=== PATIENT | female | born 1950 ===

== ENCOUNTER → 2019-01-07 18:24 | Outpatient (REF) | payer MEDICARE, OTHER, SELFPAY ==
[2019-01-07 19:45] LABS: Alanine Aminotransferase 32 IU/L (9-52); Albumin 4.4 g/dL (3.5-5.0); Albumin Globulin Ratio 1.8 (1.0-2.8); Alkaline Phosphatase 76 U/L (38-126); Aspartate Aminotransferase 21 IU/L (14-36); BUN Creatinine Ratio 13.6 (6-22); Bilirubin Total 0.6 mg/dL (0.2-1.3); Blood Urea Nitrogen 34 mg/dL (7-17); Calcium 10.6 mg/dL (8.4-10.2); Carbon Dioxide 23 mmol/L (22-32); Chloride 103 mmol/L (98-107); Estimated Glomerular Filt Rate 19.1 mL/min (>60); Globulin 2.4 g/dL (1.7-4.1); Glucose 173 mg/dL (80-110); HEMOLYSIS < 15 (0-50); Magnesium 1.9 mg/dL (1.6-2.3); Phosphorous 3.5 mg/dL (2.8-4.1); Potassium 4.2 mmol/L (3.4-5.1); Sodium 139 mmol/L (137-145); Total Protein 6.8 g/dL (6.3-8.2)
[2019-01-11 13:55] LABS: Parathyroid Hormone Int 46 pg/mL (14-64)
[2019-01-11 16:17] LABS: Ionized Calcium 5.5 mg/dL (4.8-5.6)
== END ==
LOC: LAB 18:24
PROVIDERS: Visit Provider Family Medicine Geriatric Medicine
DX: N18.4 Chronic kidney disease, stage 4 (severe) (principal)
CPT/HCPCS: 36415; 80053; 82330; 83735; 83970; 84100